=== PATIENT | female | born 1975 | race Caucasian/White ===

== ENCOUNTER → 2024-05-08 13:07 | Outpatient (REF) | payer SELFPAY | LOC: HWRAD 13:07 | PROVIDERS: ATTENDING PHYSICIAN Family Medicine | DX: Z13.6 Encounter for screening for cardiovascular disorders (principal) | CPT/HCPCS: 75571 ==

== ENCOUNTER → 2024-06-09 10:19 | Outpatient (REF) | payer BC, SELFPAY | LOC: HWRAD 10:19 | PROVIDERS: ATTENDING PHYSICIAN Family Medicine | DX: R74.8 Abnormal levels of other serum enzymes (principal) | CPT/HCPCS: 71046 ==